=== PATIENT | female | born 1975 | race Caucasian/White ===

== ENCOUNTER 2016-09-17 19:09 | Emergency (ER) | payer BC ==
[2016-09-17] MEDS ORDERED: SODIUM CHLORIDE 0.9% 1,000 ML IV STA (19:51)
[2016-09-17] MEDS ORDERED: KETOROLAC 30 MG/ML 1 ML VIAL IVP STA (19:51)
[2016-09-17] MEDS ORDERED: ONDANSETRON 4 MG/2 ML VIAL IVP STA (19:51)
--- NOTE | 2016-09-17 20:01 | ED ---
Abdominal Pain HPI - General Chief Complaint: Abdominal Pain Stated Complaint: Abd Pain Time Seen by Provider: 09/17/16 19:42 Source: patient, RN notes reviewed Mode of arrival: ambulatory Limitations: no limitations - History of Present Illness Initial Comments: Patient is a 41-year-old female chief complaint of right lower quadrant abdominal pain for the past 2 weeks. Patient reports that she was seen in urgent care clinic and was told it was constipation. Patient reports that since then she's been taking laxatives and has been able to have bowel movements. Patient reports that over the past day her right lower quadrant pain seems to be some more severe and radiated towards her back. She denies any history of appendicitis. She does have a history of diverticulitis. She states she's had a mild fever at home. Patient reports the pain seems to be worse with movements or going over bumps in the car. Patient denies any dysuria , hematuria, constipation or diarrhea. Patient reports that she has a history of tubal ligation, endometrial ablation procedure. Patient reports that she has not had a menstrual period in the past 5 years. - Related Data Home Medications Medication Instructions Recorded Confirmed Albuterol Nebulized [Ventolin 2.5 mg INHALATION RT-Q6H PRN 01/21/16 09/17/16 Nebulized] Fluticasone/Salmeterol [Advair 1 puff INHALATION RT-BID PRN 01/21/16 09/17/16 500-50 Diskus] Montelukast [Singulair] 10 mg PO DAILY PRN 01/21/16 09/17/16 Allergies Allergy/AdvReac Type Severity Reaction Status Date / Time No Known Allergies Allergy Verified 09/17/16 19:26 Review of Systems ROS Statement: Those systems with pertinent positive or pertinent negative responses have been documented in the HPI. ROS Other: All systems not noted in ROS Statement are negative. Past Medical History Past Medical History: No Reported History History of Any Multi-Drug Resistant Organisms: None Reported Past Surgical History: Cholecystectomy, Tonsillectomy Past Psychological History: No Psychological Hx Reported Smoking Status: Never smoker Past Alcohol Use History: None Reported Past Drug Use History: None Reported General Exam - General Exam Comments Initial Comments: Vision is a pleasant 41-year-old female. She does not appear to be in any acute distress. Limitations: no limitations General appearance: alert, in no apparent distress Head exam: Present: atraumatic, normocephalic, normal inspection Eye exam: Present: normal appearance, PERRL, EOMI. Absent: scleral icterus, conjunctival injection, periorbital swelling ENT exam: Present: normal exam, mucous membranes moist Neck exam: Present: normal inspection. Absent: tenderness, meningismus, lymphadenopathy Respiratory exam: Present: normal lung sounds bilaterally. Absent: respiratory distress, wheezes, rales, rhonchi, stridor Cardiovascular Exam: Present: regular rate, normal rhythm, normal heart sounds. Absent: systolic murmur, diastolic murmur, rubs, gallop, clicks GI/Abdominal exam: Present: soft, tenderness (Patient has reported right lower quadrant tenderness.), normal bowel sounds. Absent: distended, guarding, rebound, rigid Extremities exam: Present: normal inspection, full ROM, normal capillary refill. Absent: tenderness, pedal edema, joint swelling, calf tenderness Back exam: Present: normal inspection Neurological exam: Present: alert, oriented X3, CN II-XII intact Psychiatric exam: Present: normal affect, normal mood Skin exam: Present: warm, dry, intact, normal color. Absent: rash Course Vital Signs 09/17/16 09/17/16 19:24 22:41 Temperature 98.1 F 97 F L Pulse Rate 90 68 Respiratory 18 20 Rate Blood Pressure 171/94 141/83 O2 Sat by Pulse 100 97 Oximetry - Reevaluation(s) Reevaluation #1: 09/17/16 21:22 Was reevaluated and resting comfortably at this time. Medical Decision Making - Medical Decision Making Patient is a 41-year-old female with approximately 2 weeks of on and off right lower quadrant pain. Patient reports that today the pain got significant hoarseness radiating towards her back. Patient reports the pain is worse with any movement and does have evidence of peritoneal signs. Patient's lab work is negative at this time. Given patient's significant tenderness decided to do a CT abdomen and pelvis. CT shows right ovarian lymphnodes, no evidence of cysts. Also thickened endometrial wall. PAtient reevaluated and in no pain. Patient will be discharged with outpatient transvaginal US script and advised to follow up with PCP. Patient has had no vaginal bleeding. Urine prgnancy is negative. PATient understands treatment plan and will comply. REturn parameters discussed. - Lab Data Result diagrams: 09/17/16 20:00 09/17/16 20:00 Lab Results 09/17/16 09/17/16 09/17/16 Range/Units 20:00 20:00 20:00 WBC 10.4 (3.8-10.6) k/uL RBC 5.21 (3.80-5.40) m/uL Hgb 14.5 (11.4-16.0) gm/dL Hct 43.3 (34.0-46.0) % MCV 83.2 (80.0-100.0) fL MCH 27.8 (25.0-35.0) pg MCHC 33.4 (31.0-37.0) g/dL RDW 12.8 (11.5-15.5) % Plt Count 241 (150-450) k/uL Neutrophils % 70 % Lymphocytes % 22 % Monocytes % 5 % Eosinophils % 1 % Basophils % 0 % Neutrophils # 7.3 (1.3-7.7) k/uL Lymphocytes # 2.3 (1.0-4.8) k/uL Monocytes # 0.5 (0-1.0) k/uL Eosinophils # 0.1 (0-0.7) k/uL Basophils # 0.0 (0-0.2) k/uL Sodium 141 (137-145) mmol/L Potassium 4.3 (3.5-5.1) mmol/L Chloride 104 (98-107) mmol/L Carbon Dioxide 26 (22-30) mmol/L Anion Gap 11 mmol/L BUN 13 (7-17) mg/dL Creatinine 0.96 (0.52-1.04) mg/dL Est GFR (MDRD) Af Amer >60 (>60 ml/min/1.73 sqM) Est GFR (MDRD) Non-Af >60 (>60 ml/min/1.73 sqM) Glucose 87 (74-99) mg/dL Calcium 9.4 (8.4-10.2) mg/dL Total Bilirubin 1.0 (0.2-1.3) mg/dL AST 34 (14-36) U/L ALT 73 H (9-52) U/L Alkaline Phosphatase 134 H (38-126) U/L Total Protein 8.3 H (6.3-8.2) g/dL Albumin 4.4 (3.5-5.0) g/dL Amylase 54 (30-110) U/L Lipase 99 (23-300) U/L Urine Color Yellow Urine Appearance Clear (Clear) Urine pH 5.5 (5.0-8.0) Ur Specific [place] 1.020 (1.001-1.035) Urine Protein Trace H (Negative) Urine Glucose (UA) Negative (Negative) Urine Ketones Negative (Negative) Urine Blood Negative (Negative) Urine Nitrate Negative (Negative) Urine Bilirubin Negative (Negative) Urine Urobilinogen <2.0 (<2.0) mg/dL Ur Leukocyte Esterase Negative (Negative) Urine HCG, Qual (Not Detectd) 09/17/16 Range/Units 20:00 WBC (3.8-10.6) k/uL RBC (3.80-5.40) m/uL Hgb (11.4-16.0) gm/dL Hct (34.0-46.0) % MCV (80.0-100.0) fL MCH (25.0-35.0) pg MCHC (31.0-37.0) g/dL RDW (11.5-15.5) % Plt Count (150-450) k/uL Neutrophils % % Lymphocytes % % Monocytes % % Eosinophils % % Basophils % % Neutrophils # (1.3-7.7) k/uL Lymphocytes # (1.0-4.8) k/uL Monocytes # (0-1.0) k/uL Eosinophils # (0-0.7) k/uL Basophils # (0-0.2) k/uL Sodium (137-145) mmol/L Potassium (3.5-5.1) mmol/L Chloride (98-107) mmol/L Carbon Dioxide (22-30) mmol/L Anion Gap mmol/L BUN (7-17) mg/dL Creatinine (0.52-1.04) mg/dL Est GFR (MDRD) Af Amer (>60 ml/min/1.73 sqM) Est GFR (MDRD) Non-Af (>60 ml/min/1.73 sqM) Glucose (74-99) mg/dL Calcium (8.4-10.2) mg/dL Total Bilirubin (0.2-1.3) mg/dL AST (14-36) U/L ALT (9-52) U/L Alkaline Phosphatase (38-126) U/L Total Protein (6.3-8.2) g/dL Albumin (3.5-5.0) g/dL Amylase (30-110) U/L Lipase (23-300) U/L Urine Color Urine Appearance (Clear) Urine pH (5.0-8.0) Ur Specific [place] (1.001-1.035) Urine Protein (Negative) Urine Glucose (UA) (Negative) Urine Ketones (Negative) Urine Blood (Negative) Urine Nitrate (Negative) Urine Bilirubin (Negative) Urine Urobilinogen (<2.0) mg/dL Ur Leukocyte Esterase (Negative) Urine HCG, Qual Not Detected (Not Detectd) - Radiology Data Radiology results: report reviewed Significant prominent distension of endometrial wall, with tiny right ovarian lymph nodes. Radiologist suggests transvaginal US. Disposition Clinical Impression: Abdominal pain Disposition: HOME SELF-CARE Condition: Good Instructions: Abdominal Pain (ED) Additional Instructions: Patient advised to follow up with primary care provider as directed. Patient instructed to complete transvaginal ultrasound out patiently. Return to the [facility] if any alarming signs or symptoms occur. Referrals: Crista Garcia MD [Primary Care Provider] - 1-2 days Randy Barrios DO [Doctor of Osteopathic Medicine] - 1-2 days Time of Disposition: 22:38
[2016-09-17 20:16] LABS: Appearance,Urine Clear (Clear); Bilirubin,Urine Negative (Negative); Glucose,Urine (UA) Negative (Negative); Ketones,Urine Negative (Negative); Leukocyte Esterase,Urine Negative (Negative); Nitrite,Urine Negative (Negative); PH, Urine 5.5 (5.0-8.0); Protein,Urine Trace (Negative); UA Billing (MACRO vs. MICRO) CHEM; Urobilinogen,Urine <2.0 mg/dL (<2.0)
[2016-09-17 20:21] LABS: Basophils % (A) 0 %; CH 29.1; CHCM 35.2; Eosinophils # (A) 0.1 k/uL (0-0.7); Eosinophils % (A) 1 %; HCT 43.3 % (34.0-46.0); HDW 2.86; HGB 14.5 gm/dL (11.4-16.0); Luc # (Auto) 0.19; Luc % (Auto) 2; Lymphocytes # (A) 2.3 k/uL (1.0-4.8); Lymphocytes % (A) 22 %; MCH 27.8 pg (25.0-35.0); MCHC 33.4 g/dL (31.0-37.0); MCV 83.2 fL (80.0-100.0); Mean Platelet Volume 8.1; Monocytes # (A) 0.5 k/uL (0-1.0); Monocytes % (A) 5 %; Neutrophils # (A) 7.3 k/uL (1.3-7.7); Neutrophils % (A) 70 %; RBC 5.21 m/uL (3.80-5.40); RDW 12.8 % (11.5-15.5); WBC 10.4 k/uL (3.8-10.6)
[2016-09-17 20:26] LABS: ALT 73 U/L (9-52); AST 34 U/L (14-36); Alkaline Phosphatase 134 U/L (38-126); Amylase 54 U/L (30-110); Anion Gap 11 mmol/L; Blood Urea Nitrogen 13 mg/dL (7-17); Calcium 9.4 mg/dL (8.4-10.2); Carbon Dioxide 26 mmol/L (22-30); Chloride 104 mmol/L (98-107); Glucose 87 mg/dL (74-99); Non-African American GFR(MDRD) >60 (>60 ml/min/1.73 sqM); Potassium 4.3 mmol/L (3.5-5.1); Sodium 141 mmol/L (137-145); Total Protein 8.3 g/dL (6.3-8.2)
--- NOTE | 2016-09-17 20:46 | XR ---
EXAMINATION TYPE: XR KUB DATE OF EXAM: 09/17/2016 8:15 PM COMPARISON: CT January 2016 HISTORY: Right lower quadrant pain for 2 weeks TECHNIQUE: Standing upright views x2 FINDINGS: The visualized lung bases and pleural spaces are negative. There is no pneumoperitoneum or pneumatosis. No bowel obstruction. No mass or mass effect. No focal skeletal findings. Cholecystectomy clips are noted, there is a clip in the right lower quadrant, projecting just caudal to the liver tip laterally. This clip is just above the right superior iliac crest. Another metallic density is noted deep in the pelvis, just right of midline. All of these radiopaque findings are seen on CAT scan January 21, 2016. IMPRESSION: NO ACUTE RADIOGRAPHIC PROCESS.
[2016-09-17] MEDS ORDERED: RX INFO: IV CONTRAST WAS GIVEN 1 EACH MISC MISCELLANE PRN (21:01)
--- NOTE | 2016-09-17 21:58 | CT ---
EXAMINATION TYPE: CT abdomen pelvis w con DATE OF EXAM: 09/17/2016 9:25 PM COMPARISON: January 21, 2016 CT HISTORY: Pt states of lower abdominal pain. Hx of diverticulosis CT DLP: 1501.4 mGycm. Automated exposure control for dose reduction was used. TECHNIQUE: Helical acquisition of images was performed from the lung bases through the pelvis. CONTRAST: Performed without Oral Contrast and with IV Contrast, patient injected with 100 mL of Omnip aque 300. FINDINGS: LUNG BASES: No significant abnormality is appreciated. LIVER/GB: No significant abnormality is appreciated. PANCREAS: No significant abnormality is seen. SPLEEN: No significant abnormality is seen. ADRENALS: No significant abnormality is seen. KIDNEYS: No significant abnormality is seen. RETROPERITONEAL ADENOPATHY: There are tiny multifocal lymph nodes alongside the right ovarian vein. REPRODUCTIVE ORGANS: There is prominent hypodense distention of the endometrial cavity, with apparent contrast enhancement at the expected interface of the endometrial cavity and the myometrium. This fi nding can be best characterized (with UPT or beta hCG and) with endovaginal ultrasound. URINARY BLADDER: No significant abnormality is seen. PELVIC ADENOPATHY: None visualized. OSSEOUS STRUCTURES: No significant abnormality is seen. BOWEL: No significant abnormality is seen. PERITONEAL CAVITY: No abnormal fluid or gas collections. IMPRESSION: SUSPICIOUS PROMINENT DISTENTION OF THE UTERINE ENDOMETRIAL CAVITY WITHIN THE FUNDUS AND CORPUS, DI SCUSSED. TINY LYMPH NODES NOTED ALONG THE RIGHT OVARIAN VEIN. Would advise endovaginal ultrasound characterization of the uterus, with attention and the endometria l cavity and the uterine cervix. Would suggest UPT or beta hCG.
[2016-09-17 22:50] VITALS: BP 141/83; PULSE 68; RESP 20; TEMP 97
== END 2016-09-17 22:50 | disposition home or self-care (01) ==
LOC: EC 19:09
DX: R10.31 Right lower quadrant pain (principal); M54.9 Dorsalgia, unspecified; Z32.02 Encounter for pregnancy test, result negative; Z90.49 Acquired absence of other specified parts of digestive tract; Z87.19 Personal history of other diseases of the digestive system; Z98.51 Tubal ligation status
CPT/HCPCS: 36415; 80053; 82150; 83690; 85025; 81003; 81025; 74000; 74177; 99284; 96374; 96375; 96361; J2405; J1885; Q9967

== ENCOUNTER → 2016-09-21 | Outpatient (CLI) | payer BC ==
--- NOTE | 2016-09-21 09:36 | US ---
EXAMINATION TYPE: US transvaginal DATE OF EXAM: 09/21/2016 9:26 AM COMPARISON: CT in PACS 4 days ago. CLINICAL HISTORY: N85.00 THICKENED ENDOMETRIUM. Pt states RLQ pain, had recent abnormal CT TECHNIQUE: Transvaginal (TV) pelvic ultrasound Date of LMP: 2012 EXAM MEASUREMENTS: Uterus: 10.5 x 5.5 x 6.3 cm Endometrial Stripe: 3.6 cm Right Ovary: 3.3 x 1.8 x 2.4 cm Left Ovary: 3.0 x 2.0 x 2.1 cm TECHNOLOGIST IMPRESSION: wnl 1. Uterus: Retroverted Heterogeneous, Nabothian cysts in cervix 2. Endometrium: Abnormal thickening, hypoechoic with possible echos/debris within 3. Right Ovary: wnl 4. Left Ovary: wnl 5. Bilateral Adnexa: wnl 6. Posterior cul-de-sac: wnl Some nabothian cysts are seen in the cervix on ultrasound less well seen on recent CT. Corresponding to CT there is oval well-circumscribed anechoic to hypoechoic area felt to reflect trapped fluid or b lood product. No obvious obstructing mass is seen on CT or ultrasound. No suspicious cervical enlarge ment is present. Normal-appearing endometrial stripe is not present, likely within normal limits. IMPRESSION: Endometrial canal fluid or blood product is suspected. Consider cervical stenosis as poss ible etiology.
== END | disposition home or self-care (01) ==
LOC: RADUSWWP 08:56
PROVIDERS: ATTEND Emergency Medicine
DX: R93.8 Abnormal findings on diagnostic imaging of other specified body structures (principal)
CPT/HCPCS: 76830

== ENCOUNTER → 2016-11-03 | Outpatient (CLI) | payer BC ==
[2016-11-03 19:52] LABS: Basophils # (A) 0.1 k/uL (0-0.2); Basophils % (A) 1 %; CH 28.7; CHCM 33.2; Eosinophils # (A) 0.2 k/uL (0-0.7); Eosinophils % (A) 2 %; HCT 42.7 % (34.0-46.0); HDW 2.81; Luc # (Auto) 0.17; Luc % (Auto) 2; Lymphocytes % (A) 20 %; MCH 28.6 pg (25.0-35.0); MCHC 32.9 g/dL (31.0-37.0); MCV 86.9 fL (80.0-100.0); Mean Platelet Volume 8.9; Monocytes # (A) 0.5 k/uL (0-1.0); Monocytes % (A) 5 %; Neutrophils # (A) 7.3 k/uL (1.3-7.7); Neutrophils % (A) 72 %; RBC 4.91 m/uL (3.80-5.40); RDW 13.4 % (11.5-15.5); WBC 10.2 k/uL (3.8-10.6); WBC (Perox) 10.55
[2016-11-03 20:01] LABS: ALT 94 U/L (9-52); AST 41 U/L (14-36); Alkaline Phosphatase 160 U/L (38-126); Anion Gap 12 mmol/L; Blood Urea Nitrogen 11 mg/dL (7-17); Calcium 9.4 mg/dL (8.4-10.2); Carbon Dioxide 25 mmol/L (22-30); Chloride 106 mmol/L (98-107); Cholesterol 224 mg/dL (<200); Glucose 85 mg/dL (74-99); HDL Cholesterol 44 mg/dL (40-60); Non-African American GFR(MDRD) >60 (>60 ml/min/1.73 sqM); Potassium 4.4 mmol/L (3.5-5.1); Sodium 143 mmol/L (137-145); Total Bilirubin 1.1 mg/dL (0.2-1.3); Total Protein 7.8 g/dL (6.3-8.2); Triglycerides 101 mg/dL (<150)
== END ==
LOC: MMGSC 10:46
PROVIDERS: ATTEND Family Medicine
DX: Z00.00 Encounter for general adult medical examination without abnormal findings (principal)
CPT/HCPCS: 36415; 80053; 80061; 84439; 84443; 85025

== ENCOUNTER → 2016-12-08 | Outpatient (CLI) | payer BC ==
[2016-12-08 19:05] LABS: Bilirubin, Delta 0.3 mg/dL (0.0-0.2); Total Bilirubin 1.2 mg/dL (0.2-1.3); Total Protein 8.3 g/dL (6.3-8.2)
== END ==
LOC: MMGSC 12:02
PROVIDERS: ATTEND Family Medicine
DX: R79.89 Other specified abnormal findings of blood chemistry (principal)
CPT/HCPCS: 36415; 80076

== ENCOUNTER → 2017-11-23 | Outpatient (CLI) | payer BC ==
[2017-11-23 18:26] LABS: ALT 49 U/L (9-52); AST 21 U/L (14-36); Alkaline Phosphatase 128 U/L (38-126); Anion Gap 14 mmol/L; Blood Urea Nitrogen 16 mg/dL (7-17); Calcium 9.4 mg/dL (8.4-10.2); Carbon Dioxide 23 mmol/L (22-30); Chloride 104 mmol/L (98-107); Cholesterol 212 mg/dL (<200); Glucose 86 mg/dL (74-99); HDL Cholesterol 39 mg/dL (40-60); LDL Cholesterol,Calculated 139 mg/dL (0-99); Potassium 4.6 mmol/L (3.5-5.1); Sodium 141 mmol/L (137-145); Total Bilirubin 1.1 mg/dL (0.2-1.3); Total Protein 7.5 g/dL (6.3-8.2); Triglycerides 171 mg/dL (<150)
[2017-11-23 18:42] LABS: T4, Free (Free Thyroxine) 1.12 ng/dL (0.78-2.19)
[2017-11-23 19:17] LABS: Basophils # (A) 0.1 k/uL (0-0.2); Basophils % (A) 1 %; Eosinophils # (A) 0.2 k/uL (0-0.7); Eosinophils % (A) 2 %; HCT 39.9 % (34.0-46.0); HGB 13.9 gm/dL (11.4-16.0); Lymphocytes # (A) 2.4 k/uL (1.0-4.8); Lymphocytes % (A) 21 %; MCH 28.6 pg (25.0-35.0); MCHC 34.8 g/dL (31.0-37.0); MCV 82.2 fL (80.0-100.0); Mean Platelet Volume 8.4; Monocytes # (A) 0.5 k/uL (0-1.0); Monocytes % (A) 5 %; Neutrophils # (A) 7.9 k/uL (1.3-7.7); Neutrophils % (A) 70 %; Platelet Count 218 k/uL (150-450); RBC 4.85 m/uL (3.80-5.40); WBC 11.2 k/uL (3.8-10.6)
[2017-11-24 12:39] LABS: Hemoglobin A1C 4.8 % (4.0-6.0)
== END | disposition home or self-care (01) ==
LOC: MMGSC 09:58
PROVIDERS: ATTEND Family Medicine
DX: Z00.00 Encounter for general adult medical examination without abnormal findings (principal)
CPT/HCPCS: 36415; 80053; 80061; 83036; 84439; 84443; 85025

== ENCOUNTER → 2018-12-08 | Outpatient (CLI) | payer BC ==
--- NOTE | 2018-12-11 13:45 | MM ---
Reason for exam: screening (asymptomatic). Last mammogram was performed 2 years and 11 months ago. History: Family history of breast cancer in maternal aunt. Physical Findings: A clinical breast exam by your physician is recommended on an annual basis and results should be correlated with mammographic findings. MG Screening Mammo w CAD Bilateral CC and MLO view(s) were taken. Prior study comparison: January 07, 2016, bilateral MG screening mammo w CAD. June 28, 2014, bilateral MG screening mammo w CAD. There are scattered fibroglandular densities. There is a new oval circumscribed right upper outer quadrant mass. Correlate for mole or new skin lesion. This is a low density possible lipoma, sebaceous cyst or developing oil cyst. ASSESSMENT: Incomplete: need additional imaging evaluation, BI-RAD 0 RECOMMENDATION: Ultrasound of the right breast. [facility] will attempt to contact patient to return for ultrasound.
== END | disposition home or self-care (01) ==
LOC: RADMAMWWP 08:03
PROVIDERS: ATTEND Family Medicine
DX: Z12.31 Encounter for screening mammogram for malignant neoplasm of breast (principal); R92.8 Other abnormal and inconclusive findings on diagnostic imaging of breast
CPT/HCPCS: 77067

== ENCOUNTER → 2018-12-21 | Outpatient (CLI) | payer BC ==
--- NOTE | 2018-12-21 11:23 | USB ---
Reason for exam: additional evaluation requested from abnormal screening. History: Family history of breast cancer in maternal aunt. Physical Findings: Nurse did not find any significant physical abnormalities on exam. US Breast Workup Limited RT Right limited breast ultrasound including focal area of concern, retroareolar and axilla demonstrates a 0.2 x 0.2 x 0.3cm lesion too small to characterize at 10 o'clock and a 0.5 x 0.4 x 0.5cm round, cystic, mixed lesion at 11 o'clock.Lesion is cystic with slight suspicious nodule component along periphery. These results were verbally communicated with the patient and result sheet given to the patient on 12/21/18. ASSESSMENT: Suspicious, BI-RAD 4 RECOMMENDATION: Ultrasound core biopsy of the right breast. Called Dr. Garcia with mammographic findings and has scheduled an appointment for the patient for 01/25/19 at 9:[address] Post. Biopsy scheduled for 01/05/19 at 11:30. PRELIMINARY REPORT CALLED AND FAXED TO DR. POST ON 12/21/18. [facility]
== END | disposition home or self-care (01) ==
LOC: RADUSWWP 10:21
PROVIDERS: ATTEND Family Medicine
DX: R92.8 Other abnormal and inconclusive findings on diagnostic imaging of breast (principal)

== ENCOUNTER → 2019-01-05 | Day surgery (SDC) | payer BC ==
[2019-01-05 10:47] VITALS: RESP 16; TEMP 97.9; BMI 40.3
[2019-01-05 12:03] VITALS: BP 150/87; PULSE 69
--- NOTE | 2019-01-05 12:17 | USB ---
EXAMINATION TYPE: US biopsy breast VAD RT, MG diagnostic mammo RT wo CAD DATE OF EXAM: 01/05/2019 CLINICAL HISTORY: R92.8 abnormal mammgoram. TECHNIQUE: Ultrasound guided core biopsy of right 11:00 breast. COMPARISON: NONE FINDINGS: The procedure of ultrasound guided core biopsy was explained to the patient. Benefits, alt ernatives, and risks were discussed. An informed consent was then obtained. The patient was placed in supine positioning for imaging and for the procedure. The overlying skin w as prepped and draped in usual sterile fashion. Lidocaine buffered with bicarbonate was used as anes thetic into the skin and subcutaneous tissue up to area of concern in the right 11:00 breast. Under ultrasound guidance, a 12-gauge vacuum assisted biopsy gun device was used to obtain 1 core amairani ple was obtained and the lesion was no longer present. Following this, a biopsy clip was left in les ion. Procedural mammogram demonstrates appropriate deployment. The patient tolerated the procedure well without any immediate complication. The patient was kept in the radiology department for short stay after the procedure and then discharged home in stable condi tion. IMPRESSION: Successful, uncomplicated ultrasound guided core biopsy of area of concern in the right 1 1:00 breast, full pathology results to follow.
== END ==
LOC: RADUSWWP 10:23
PROVIDERS: ATTEND Surgery
DX: N64.1 Fat necrosis of breast (principal); R92.8 Other abnormal and inconclusive findings on diagnostic imaging of breast
CPT/HCPCS: 88305; 77065; 19083; A4648; J2001

== ENCOUNTER 2019-02-14 07:39 | Day surgery (SDC) | payer BC ==
[2019-02-08 12:16] VITALS: BMI 40.3
[~2019-02-14 07:39] MED LIST: DEXAMETHASONE SOD PHOSPHATE 10 MG/ML 1 ML VIAL IV ONE; HEPARIN SODIUM,PORCINE 5,000 UNIT/ML 1 ML VIAL SQ ONE; HYDROmorphone 0.5 MG/0.5 ML SYRINGE IVP PRN; LACTATED RINGERS 1,000 ML IV SCH; LIDOCAINE 1% 20 ML VIAL (10MG/ML) FOR IV START INTRADERMA PRN; MIDAZOLAM 2 MG/2 ML VIAL IV PRN; ONDANSETRON 4 MG/2 ML VIAL IVP ONE; SCOPOLAMINE 1.5MG/72HR PATCH TRANSDERM ONE; ceFAZolin IN SWFI 2 GM/20 ML SYRINGE IVP ONE
[2019-02-14] MEDS ORDERED: ALPRAZolam 0.5 MG TAB PO ONE (08:22)
--- NOTE | 2019-02-14 08:32 | P.GSHP ---
History of Present Illness H&P Date: 02/14/19 Chief Complaint: Abnormal right mammogram 43-year-old female seen in the office in early January. Patient had a recent mammogram showing a new lesion in the upper outer quadrant right breast. Patient without symptoms. Ultrasound was performed which showed 2 small lesions one of which was considered suspicious. Ultrasound core biopsy was obtained. Only a single sample was obtained. Lesion was no longer evident following that. Pathology benign. Radiology has recommended repeat biopsy given the limited sampling. Past Medical History Past Medical History: Hypertension Additional Past Medical History / Comment(s): Seasonal/outdoor allergies. History of Any Multi-Drug Resistant Organisms: None Reported Past Surgical History: Section, Cholecystectomy, Hysterectomy, Tonsillectomy, Tubal Ligation Past Anesthesia/Blood Transfusion Reactions: No Reported Reaction Past Psychological History: Anxiety Smoking Status: Never smoker Past Alcohol Use History: None Reported Past Drug Use History: None Reported - Past Family History Father Family Medical History: Cancer Additional Family Medical History / Comment(s): Prostate cancer. Medications and Allergies Home Medications Medication Instructions Recorded Confirmed Type Montelukast [Singulair] 10 mg PO DAILY PRN 01/21/16 02/08/19 History amLODIPine BESYLATE/BENAZEPRIL 1 tab PO QAM 12/21/18 02/08/19 History [amLODIPine BESYLATE/BENAZEPRIL 5-10 MG] Allergies Allergy/AdvReac Type Severity Reaction Status Date / Time No Known Allergies Allergy Verified 02/14/19 08:13 Surgical - Exam Vital Signs Temp Pulse Resp BP Pulse Ox 97.6 F 89 16 136/78 96 02/14/19 08:12 02/14/19 08:12 02/14/19 08:12 02/14/19 08:12 02/14/19 08:12 Physical exam: General: Well-developed, well-nourished HEENT: Normocephalic, sclerae nonicteric Abdomen: Nontender, nondistended Extremities: No edema Neuro: Alert and oriented Assessment and Plan (1) Abnormal mammogram of right breast Narrative/Plan: Clinical scenario discussed in detail with the patient. Discussed the case with radiology after her office visit. Radiology is advising wire localization biopsy given the initial appearance on mammography and ultrasound. We will proceed with right breast wire localization biopsy. Risks of bleeding, infection, scarring, dimpling, possible need for additional surgery reviewed. She understands and wishes to proceed. Current Visit: Yes Status: Acute Code(s): R92.8 - OTH ABN AND INCONCLUSIVE FINDINGS ON DX IMAGING OF BREAST SNOMED Code(s): 598806648
[2019-02-14] MEDS ORDERED: LIDOCAINE 1%-EPI 1:100,000 20 ML VIAL SQ ONE (08:45)
[2019-02-14] MEDS ORDERED: fentaNYL (PF) 50 MCG/ML 2 ML AMP ONE (10:17)
[2019-02-14] MEDS ORDERED: MIDAZOLAM 2 MG/2 ML VIAL ONE (10:17)
[2019-02-14] MEDS ORDERED: LIDOCAINE 1% INJ 10MG/ML (20 ML MDV) ONE (10:17)
[2019-02-14] MEDS ORDERED: PROPOFOL 10 MG/ML 20 ML VIAL IV ONE (10:17)
[2019-02-14] MEDS ORDERED: LACTATED RINGERS 1,000 ML IV ONE ×2 (10:21→11:19)
[2019-02-14] MEDS ORDERED: BUPIVACAINE (PF) 0.25% 30 ML VIAL SQ ONE (10:42)
[2019-02-14] MEDS ORDERED: NALOXONE 0.4 MG/ML 1 ML VIAL IV PRN (11:28)
[2019-02-14] MEDS ORDERED: HYDROcodone/APAP 5-325MG 1 EACH TAB PO PRN (11:28)
[2019-02-14 11:32] VITALS: RESP 16; TEMP 96.9
--- NOTE | 2019-02-14 11:35 | P.OP ---
Date of Procedure: 02/14/19 Procedure(s) Performed: PREOPERATIVE DIAGNOSIS: Abnormal right mammogram POSTOPERATIVE DIAGNOSIS: Same PROCEDURE: Right Breast wire localization biopsy SURGEON: Sejal EBL: Minimal ANESTHESIA: Sedation plus local COMPLICATIONS: None OPERATIVE PROCEDURE: Patient was placed on the operating room table in the s upine position. The patient's breast was prepped and draped in usual sterile fashion. The patient's wire was entering the breast at about the 10 to 11 o'clock position directed posteriorly and inferiorly. Curvilinear incision was made along the areola in the upper outer quadrant. I dissected through the subcutaneous breast tissues until the wire was encountered. The tissue around the middle aspect and tip of the wire including slightly more tissue posteriorly was taken. The specimen radiograph did not show the clip in the specimen. At that time I took an additional 2 small portions of tissue in the area where the expected clip was present and again unfortunately no clip was seen. I discussed the findings with radiology who felt that the primary area in question was along the tract of the wire did appear to be completely excised. I was not able to palpate any indurated tissue to suggest the location of the clip. The area was irrigated with saline. No bleeding was seen. The subcutaneous tissues were closed using 3-0 Vicryl sutures. The skin was closed using a running 4-0 Monocryl stitch. Skin glue was then applied. DISPOSITION: Stable to recovery room
[2019-02-14 12:34] VITALS: BP 125/85; PULSE 77
--- NOTE | 2019-02-14 12:58 | MM ---
EXAMINATION TYPE: MG surgical specimen RT, MG pre op needle loc RT DATE OF EXAM: 02/14/2019 COMPARISON: Exams dating back to 12/08/2018 CLINICAL HISTORY: Right breast biopsy yielding a pathologic diagnosis of fat necrosis although inadequate specimen. Therefore needle localization was performed. TECHNIQUE: Needle localization with wire placement and surgical excision of area of concern in the right breast. FINDINGS: The procedure of needle localization with wire placement and than surgical excision was explained to the patient. Benefits, alternatives, and risks were discussed. An informed consent was then obtained. Preprocedural timeout was performed. The shortest pathway for procedure was chosen. The mammographic mass rather than the biopsy marker was targeted. Shortest pathway was lateral to medial approach. The overlying skin was prepped and draped in usual sterile fashion. Lidocaine buffered with bicarbonate was used as anesthetic into the skin and subcutaneous tissue up to the level of area of concern. A 5 cm needle was used. It was placed via a lateral to medial approach under mammographic guidance. Subsequent 90 degrees mammogram show the needle to be in satisfactory position relative to the targeted area. At this point, wire was placed and the needle was withdrawn. The wire was fixed to patient's skin. Images were marked for surgeon. The patient tolerated the procedure well without any immediate complication. The patient was kept in the radiology department for short stay after the procedure and then taken to surgery for surgical excision. Targeted mammographic mass and wire are identified in specimen mammogram. The biopsy marker was not included in the specimens however the mass was localized rather than the biopsy marker. The patient was kept in hospital for short stay after the procedure and then discharged home in stable condition. IMPRESSION: Successful, uncomplicated needle localization with wire placement and surgical excision of a mammographic mass in the right breast, full pathology results to follow. Note that the biopsy marker was not included in the specimens however the mass was localized rather than the biopsy marker. Pathology Results: Benign A. RIGHT BREAST, NEEDLE LOCALIZATION EXCISION BIOPSY: Nodular fat necrosis with fibrosis, histiocytes and pigmented non-refractile material. Negative for malignancy. B. RIGHT BREAST, EXCISION BIOPSY #2: Benign breast tissue with focal fibrosis. Recommendation Follow up mammogram of the right breast in 6 months. LYN
== END 2019-02-14 12:45 | disposition home or self-care (01) ==
LOC: OR 07:39
PROVIDERS: ATTEND Surgery
DX: N60.31 Fibrosclerosis of right breast (principal); N64.1 Fat necrosis of breast; I10 Essential (primary) hypertension; J45.909 Unspecified asthma, uncomplicated; F41.9 Anxiety disorder, unspecified; Z79.899 Other long term (current) drug therapy; Z90.49 Acquired absence of other specified parts of digestive tract; Z90.710 Acquired absence of both cervix and uterus; Z98.51 Tubal ligation status; Z80.42 Family history of malignant neoplasm of prostate
CPT/HCPCS: 19125; 19281; 88307; 76098; J2250; J1644; J2001; J3010; J2704; J0690

== ENCOUNTER 2019-07-16 22:00 | Emergency (ER) | payer BC ==
[2019-07-16 22:18] VITALS: BP 145/92; PULSE 92; RESP 16; TEMP 97.9
--- NOTE | 2019-07-16 22:35 | ED ---
Skin/Abscess/FB HPI - General Chief complaint: Skin/Abscess/Foreign Body Stated complaint: Discolored hands, Sleeve surgery in OCT Time Seen by Provider: 07/16/19 22:21 Source: patient, RN notes reviewed, old records reviewed Mode of arrival: ambulatory Limitations: no limitations - History of Present Illness Initial comments: Patient is a 44-year-old female presents emergency department today for evaluation for concern for dysphonia is a she was sitting watching TV today. She reports no tenderness in the cold room and noticed that they seem to gre enish color. She reports that they seem to return to collar and after normal. She reports that her son has a history of Raynauds syndrome. She reports that she's lost a significant amount of weight since her gastric sleeve surgery and wonders if her weight loss could contribute to this. She denies any pain in her hands. She reports that her coloration did quickly return. - Related Data Home Medications Medication Instructions Recorded Confirmed Montelukast [Singulair] 10 mg PO DAILY PRN 01/21/16 02/08/19 amLODIPine BESYLATE/BENAZEPRIL 1 tab PO QAM 12/21/18 02/08/19 [amLODIPine BESYLATE/BENAZEPRIL 5-10 MG] Allergies Allergy/AdvReac Type Severity Reaction Status Date / Time No Known Allergies Allergy Verified 07/16/19 22:18 Review of Systems ROS Statement: Those systems with pertinent positive or pertinent negative responses have been documented in the HPI. ROS Other: All systems not noted in ROS Statement are negative. Past Medical History Past Medical History: Hypertension Additional Past Medical History / Comment(s): Seasonal/outdoor allergies. History of Any Multi-Drug Resistant Organisms: None Reported Past Surgical History: Section, Cholecystectomy, Hysterectomy, Tonsillectomy, Tubal Ligation Past Anesthesia/Blood Transfusion Reactions: No Reported Reaction Past Psychological History: Anxiety Smoking Status: Never smoker Past Alcohol Use History: None Reported Past Drug Use History: None Reported - Past Family History Father Family Medical History: Cancer Additional Family Medical History / Comment(s): Prostate cancer. General Exam Limitations: no limitations General appearance: alert, in no apparent distress Head exam: Present: atraumatic, normocephalic, normal inspection Eye exam: Present: normal appearance, PERRL, EOMI. Absent: scleral icterus, conjunctival injection, periorbital swelling ENT exam: Present: normal exam, mucous membranes moist Neck exam: Present: normal inspection. Absent: tenderness, meningismus, lymphadenopathy Respiratory exam: Present: normal lung sounds bilaterally. Absent: respiratory distress, wheezes, rales, rhonchi, stridor Cardiovascular Exam: Present: regular rate, normal rhythm, normal heart sounds. Absent: systolic murmur, diastolic murmur, rubs, gallop, clicks GI/Abdominal exam: Present: soft, normal bowel sounds. Absent: distended, tenderness, guarding, rebound, rigid Extremities exam: Present: normal inspection, full ROM, normal capillary refill, other (Capillary refill is less than 2 seconds in all Extremities. Patient was 2+ dorsalis pedis pulses bilaterally. Radial ulnar pulses are palpable.). Absent: tenderness, pedal edema, joint swelling, calf tenderness Back exam: Present: normal inspection Neurological exam: Present: alert, oriented X3, CN II-XII intact Psychiatric exam: Present: normal affect, normal mood Skin exam: Present: warm, dry, intact, normal color. Absent: rash Course Vital Signs 07/16/19 22:14 Temperature 97.9 F Pulse Rate 92 Respiratory 16 Rate Blood Pressure 145/92 O2 Sat by Pulse 97 Oximetry Medical Decision Making - Medical Decision Making Patient is a 44-year-old female presents for an episode of discoloration or hands. She reports that they were called and she felt that her hands were discolored. After they warmed up the color returned. I discussed this likely consistent with Raynaud's syndrome. She is capillary refill of this time less than 2 seconds. Pulses are equal in all 4 extremities. She denies any pain at this time. Discussed she can follow-up with her primary care doctor and rest remain hydrated. QUESTIONS are answered. - Radiology Data Radiology results: report reviewed Disposition Clinical Impression: Raynaud phenomenon Disposition: HOME SELF-CARE Condition: Good Instructions (If sedation given, give patient instructions): Raynaud Disease (ED) Additional Instructions: Patient advised to rest, increase fluid intake. Follow-up with primary care physician. If the symptoms continue to worsen or persist further pain associate with a triage return to the ER. Is patient prescribed a controlled substance at d/c from ED?: No Referrals: Crista Garcia MD [Primary Care Provider] - 1-2 days Time of Disposition: 22:35
== END 2019-07-16 22:55 | disposition home or self-care (01) ==
LOC: EC 22:00
DX: I73.00 Raynaud's syndrome without gangrene (principal); I10 Essential (primary) hypertension; Z98.84 Bariatric surgery status; Z79.899 Other long term (current) drug therapy
CPT/HCPCS: 99283

== ENCOUNTER → 2019-07-23 | Outpatient (CLI) | payer BC ==
--- NOTE | 2019-07-25 10:12 | MM ---
Reason for exam: follow-up at short interval from prior study. Last mammogram was performed 7 months ago. History: Family history of breast cancer in maternal aunt. Benign MG pre op needle loc RT of the right breast, February 14, 2019. US biopsy breast VAD RT of the right breast, January 05, 2019. Physical Findings: Nurse did not find any significant physical abnormalities on exam. MG Diagnostic Mammo RT w CAD CC, MLO, and XCCL view(s) were taken of the right breast. Prior study comparison: January 05, 2019, right breast MG diagnostic mammo RT wo CAD. December 08, 2018, bilateral MG screening mammo w CAD. There are scattered fibroglandular densities. No suspicious abnormality. Although the right biopsy marker remains, the mammographic mass seen on 12/08/18 is surgically absent. These results were verbally communicated with the patient and result sheet given to the patient on 07/23/19. ASSESSMENT: Benign, BI-RAD 2 RECOMMENDATION: Return to routine screening mammogram schedule for both breasts. Back on schedule for November 2019.
== END | disposition home or self-care (01) ==
LOC: RADMAMWWP 10:58
PROVIDERS: ATTEND Surgery
DX: R92.8 Other abnormal and inconclusive findings on diagnostic imaging of breast (principal)
CPT/HCPCS: 77065

== ENCOUNTER → 2020-06-18 | Outpatient (CLI) | payer BC ==
[2020-06-18 09:03] LABS: HCT 42.4 % (34.0-46.0); HGB 14.2 gm/dL (11.4-16.0); MCH 29.8 pg (25.0-35.0); MCHC 33.5 g/dL (31.0-37.0); MCV 89.2 fL (80.0-100.0); Mean Platelet Volume 8.5; Platelet Count 191 k/uL (150-450); RBC 4.76 m/uL (3.80-5.40); RDW 12.6 % (11.5-15.5); WBC 7.3 k/uL (3.8-10.6)
[2020-06-18 16:47] LABS: African American GFR (CKD) 89.5 (60.0-200.0); Albumin 4.1 g/dL (3.80-4.90); Albumin/Globulin Ratio 1.64 (1.60-3.17); Anion Gap 6.1 mmol/L (4.00-12.00); BUN/Creat Ratio 15.56 Ratio (12.00-20.00); Calcium 9.3 mg/dL (8.7-10.3); Carbon Dioxide 27.9 mmol/L (21.6-31.8); Folate, Serum 10.7 ng/mL; Globulin 2.5 g/dL (1.6-3.3); Non-African American GFR(CKD) 77.2 (60.0-200.0); Potassium 4.4 mmol/L (3.5-5.5); Total Bilirubin 1.7 mg/dL (0.2-1.2); Total Protein 6.6 g/dL (6.2-8.2)
== END | disposition home or self-care (01) ==
LOC: LABWHC1 08:09
PROVIDERS: ATTEND Surgery
DX: K91.1 Postgastric surgery syndromes (principal); D50.9 Iron deficiency anemia, unspecified; E55.9 Vitamin D deficiency, unspecified; D51.8 Other vitamin B12 deficiency anemias; Z98.84 Bariatric surgery status; Z90.3 Acquired absence of stomach [part of]
CPT/HCPCS: 36415; 80053; 82306; 82607; 82746; 83540; 84425; 85027

== ENCOUNTER → 2020-07-01 | Outpatient (CLI) | payer BC | END | disposition home or self-care (01) | LOC: LABWHC1 11:19 | PROVIDERS: ATTEND Family Medicine | DX: Z20.828 Contact with and (suspected) exposure to other viral communicable diseases (principal) | CPT/HCPCS: U0003; C9803 ==

== ENCOUNTER → 2020-07-14 | Outpatient (CLI) | payer BC | END | disposition home or self-care (01) | LOC: LABWHC1 15:57 | PROVIDERS: ATTEND Family Medicine | DX: Z20.828 Contact with and (suspected) exposure to other viral communicable diseases (principal) | CPT/HCPCS: U0003; C9803 ==

== ENCOUNTER → 2021-01-06 | Outpatient (CLI) | payer BC ==
--- NOTE | 2021-01-08 09:35 | MM ---
Reason for exam: screening (asymptomatic). Last mammogram was performed 1 year and 6 months ago. History: Family history of breast cancer in maternal aunt. Benign MG pre op needle loc RT of the right breast, February 14, 2019. US biopsy breast VAD RT of the right breast, January 05, 2019. Physical Findings: A clinical breast exam by your physician is recommended on an annual basis and results should be correlated with mammographic findings. MG Screening Mammo w CAD Bilateral CC and MLO view(s) were taken. Prior study comparison: July 23, 2019, right breast MG diagnostic mammo RT w CAD. January 05, 2019, right breast MG diagnostic mammo RT wo CAD. There are scattered fibroglandular densities. Previous mammotome biopsy in the right breast. Left upper outer quadrant focal asymmetry is more defined especially on MLO but probably relates to superimposition. Spot views recommended to confirm. ASSESSMENT: Incomplete: need additional imaging evaluation, BI-RAD 0 RECOMMENDATION: Special view mammogram of the left breast. (3D) If lesion persists on supplemental views, image directed ultrasound is recommended. [facility] will attempt to contact patient to return for supplemental views and ultrasound if indicated.
== END | disposition home or self-care (01) ==
LOC: RADMAMWWP 09:45
PROVIDERS: ATTEND Family Medicine
DX: Z12.31 Encounter for screening mammogram for malignant neoplasm of breast (principal); Z98.890 Other specified postprocedural states; Z80.3 Family history of malignant neoplasm of breast
CPT/HCPCS: 77067

== ENCOUNTER → 2021-01-20 | Outpatient (CLI) | payer BC ==
--- NOTE | 2021-01-21 10:27 | MM ---
Reason for exam: additional evaluation requested from abnormal screening. Last mammogram was performed less than 1 month ago. History: Family history of breast cancer in maternal aunt. Benign MG pre op needle loc RT of the right breast, February 14, 2019. US biopsy breast VAD RT of the right breast, January 05, 2019. Physical Findings: Nurse did not find any significant physical abnormalities on exam. MG Work Up Mamm w CAD LT Spot compression CC, spot compression MLO, and LM view(s) were taken of the left breast. Prior study comparison: January 06, 2021, bilateral MG screening mammo w CAD. July 23, 2019, right breast MG diagnostic mammo RT w CAD. There are scattered fibroglandular densities. This finding is changed when compared with previous exams. These results were verbally communicated with the patient and result sheet given to the patient on 01/20/21. ASSESSMENT: Incomplete: need additional imaging evaluation, BI-RAD 0 RECOMMENDATION: Ultrasound of the left breast.
--- NOTE | 2021-01-21 10:28 | USB ---
Reason for exam: additional evaluation requested from abnormal screening. History: Family history of breast cancer in maternal aunt. Benign MG pre op needle loc RT of the right breast, February 14, 2019. US biopsy breast VAD RT of the right breast, January 05, 2019. US Breast Workup Limited LT Left limited breast ultrasound including focal area of concern, retroareolar and axilla demonstrates no cystic or solid lesion seen. These results were verbally communicated with the patient and result sheet given to the patient on 01/20/21. ASSESSMENT: Probably benign, BI-RAD 3 RECOMMENDATION: Follow-up diagnostic mammogram of the left breast in 6 months. (including compression 3D)
== END | disposition home or self-care (01) ==
LOC: RADMAMWWP 14:40
PROVIDERS: ATTEND Family Medicine
DX: N64.89 Other specified disorders of breast (principal); Z80.3 Family history of malignant neoplasm of breast
CPT/HCPCS: 77065

== ENCOUNTER → 2021-08-11 | Outpatient (CLI) | payer BC ==
--- NOTE | 2021-08-11 10:32 | MM ---
Reason for exam: follow-up at short interval from prior study. Last mammogram was performed 7 months ago. History: Family history of breast cancer in maternal aunt at age 30. Benign MG pre op needle loc RT of the right breast, February 14, 2019. US biopsy breast VAD RT of the right breast, January 05, 2019. Physical Findings: Nurse did not find any significant physical abnormalities on exam. MG Diagnostic Mammo LT w CAD CC and MLO view(s) were taken of the left breast. Prior study comparison: January 20, 2021, left breast MG work up mamm w CAD LT. January 06, 2021, bilateral MG screening mammo w CAD. There are scattered fibroglandular densities. Superior left asymmetric density unchanged for 6 months. The density on CC is not as defined. A benign etiology is suspected. Continued follow up recommended. These results were verbally communicated with the patient and result sheet given to the patient on 08/11/21. ASSESSMENT: Probably benign, BI-RAD 3 RECOMMENDATION: Follow-up diagnostic mammogram of both breasts in 5 months. Back on schedule for December 2021.
== END | disposition home or self-care (01) ==
LOC: RADMAMWWP 08:56
PROVIDERS: ATTEND Family Medicine
DX: R92.8 Other abnormal and inconclusive findings on diagnostic imaging of breast (principal)
CPT/HCPCS: 77065

== ENCOUNTER → 2022-02-11 | Outpatient (CLI) | payer BC ==
--- NOTE | 2022-02-11 13:19 | MM ---
Reason for Exam: Follow-up at short interval from prior study. Last mammogram was performed 1 year(s) and 1 month(s) ago. Patient History: Menarche at age 12. First Full-Term at age 26. Hysterectomy at age 42. 02/14/2019, Benign Core Biopsy on the right side. 01/05/2019, Core Biopsy on the Right side. Maternal aunt had breast cancer, age 30. Risk Values: Tawny 5 year model risk: 2.3%. NCI Lifetime model risk: 16.0%. Prior Study Comparison: 01/06/2021 Bilateral Screening Mammogram, [facility]. 01/20/2021 Left Diagnostic Mammogram, [facility]. 08/11/2021 Left Diagnostic Mammogram, [facility]. Tissue Density: The breast tissue is heterogeneously dense. This may lower the sensitivity of mammography. Findings: Analyzed By CAD. Persistent asymmetric density upper outer left breast Dating back to 2018. Microclip marker right breast. No new areas of distortion or masses seen. No suspicious calcifications. Overall Assessment: Benign, BI-RAD 2 Management: Screening Mammogram of both breasts in 1 year. A clinical breast exam by your physician is recommended on an annual basis and results should be correlated with mammographic findings. This exam should not preclude additional follow-up of suspicious palpable abnormalities. Results were given to the patient verbally at the time of exam. Electronically signed and approved by: Edmar Fang M.D. Radiologis
== END | disposition home or self-care (01) ==
LOC: RADMAMWWP 01-12 07:16
PROVIDERS: ATTEND Family Medicine
DX: R92.8 Other abnormal and inconclusive findings on diagnostic imaging of breast (principal)
CPT/HCPCS: 77066

== ENCOUNTER → 2023-02-22 | Outpatient (CLI) | payer BC ==
--- NOTE | 2023-02-22 10:19 | MM ---
Reason for Exam: Screening (asymptomatic). Last mammogram was performed 1 year(s) and 1 month(s) ago. Patient History: Menarche at age 12. First Full-Term at age 26. Hysterectomy at age 42. 02/14/2019, Benign Core Biopsy on the right side. 01/05/2019, Core Biopsy on the Right side. Maternal aunt had breast cancer, age 30. Risk Values: Tawny 5 year model risk: 2.1%. NCI Lifetime model risk: 15.6%. Prior Study Comparison: 01/20/2021 Left Diagnostic Mammogram, [facility]. 08/11/2021 Left Diagnostic Mammogram, [facility]. 02/11/2022 Bilateral MG diagnostic mammo w CAD [facility], [facility]. Tissue Density: The breast tissue is heterogeneously dense. This may lower the sensitivity of mammography. Findings: Analyzed By CAD. Right breast biopsy clip. There is no suspicious group of microcalcifications or new suspicious mass in either breast. Overall Assessment: Negative, BI-RAD 1 Management: Screening Mammogram of both breasts in [address] [facility] will attempt to contact patient to return for supplemental views and ultrasound if indicated. Patient should continue monthly self-breast exams. A clinical breast exam by your physician is recommended on an annual basis. This exam should not preclude additional follow-up of suspicious palpable abnormalities. Note on Tawny scores and lifetime risk: 1. A Tawny score greater than 3% is considered moderate risk. If this is the case, consider specialist referral to assess eligibility for a risk reducing agent. 2. If overall lifetime risk for the development of breast cancer is 20% or higher, the patient may qualify for future screening with alternating mammogram and breast MRI. Electronically signed and approved by: Moshe Romero DO
== END | disposition home or self-care (01) ==
LOC: RADMAMWWP 07:23
PROVIDERS: ATTEND Family Medicine
DX: Z12.31 Encounter for screening mammogram for malignant neoplasm of breast (principal); Z80.3 Family history of malignant neoplasm of breast
CPT/HCPCS: 77067

== ENCOUNTER → 2024-04-18 | Outpatient (CLI) | payer BC ==
--- NOTE | 2024-04-22 12:33 | MM ---
Reason for Exam: Screening (asymptomatic). Last mammogram was performed 1 year(s) and 2 month(s) ago. Patient History: Menarche at age 12. First Full-Term at age 26. Hysterectomy at age 42. 02/14/2019, Benign Core Biopsy on the right side. 01/05/2019, Core Biopsy on the Right side. Maternal aunt had breast cancer, age 30. Risk Values: Tawny 5 year model risk: 1.9%. NCI Lifetime model risk: 15.3%. Prior Study Comparison: 08/11/2021 Left Diagnostic Mammogram, [facility]. 02/11/2022 Bilateral MG diagnostic mammo w CAD [facility], [facility]. 02/22/2023 Bilateral MG 3D screening mammo w/cad, [facility]. Tissue Density: The breasts are almost entirely fatty. Findings: Analyzed By CAD. Right breast: There is no suspicious group of microcalcifications or new suspicious mass. Left breast: There is no suspicious group of microcalcifications or new suspicious mass. Overall Assessment: Negative, BI-RAD 1 Management: Screening Mammogram of both breasts in [address] [facility] will attempt to contact patient to return for supplemental views and ultrasound if indicated. Patient should continue monthly self-breast exams. A clinical breast exam by your physician is recommended on an annual basis. This exam should not preclude additional follow-up of suspicious palpable abnormalities. Note on Tawny scores and lifetime risk: 1. A Tawny score greater than 3% is considered moderate risk. If this is the case, consider specialist referral to assess eligibility for a risk reducing agent. 2. If overall lifetime risk for the development of breast cancer is 20% or higher, the patient may qualify for future screening with alternating mammogram and breast MRI. Electronically signed and approved by: Moshe Romero DO
== END | disposition home or self-care (01) ==
LOC: RADMAMWWP 06:57
PROVIDERS: ATTEND Family Medicine
DX: Z12.31 Encounter for screening mammogram for malignant neoplasm of breast
CPT/HCPCS: 77067